=== PATIENT | male | born 1990 | race American Indian/Alaskan Native ===

== ENCOUNTER 2016-10-30 06:57 | Day surgery (SDC) | payer OTHER, BC ==
[2016-10-23 10:25] VITALS: BMI 38.7
[2016-10-30] MEDS ORDERED: Rocuronium 10 mg/ml (10 ml) ONE (07:50)
[2016-10-30] MEDS ORDERED: Propofol 10 mg/ml Inj (20 ML) ONE (07:50)
[2016-10-30] MEDS ORDERED: Midazolam 2 MG/2 ML VIAL ONE ×2 (07:52→10:27)
[2016-10-30] MEDS ORDERED: Lactated Ringer's 1,000 ML IV ONE ×3 (08:20→14:30)
[2016-10-30] MEDS ORDERED: ceFAZolin IV 2 gm in Dextrose 1 GM/50 ML BAG IVPB ONE (08:32)
[2016-10-30] MEDS ORDERED: Bacitracin Ointment 30 GM TUBE ONE (10:27)
[2016-10-30] MEDS ORDERED: Neostigmine Methylsulfate 3mg/3ml Syringe IV ONE (10:34)
[2016-10-30] MEDS ORDERED: HYDROmorphone 0.5 mg/0.5 ml ISec IVP PRN (11:40)
[2016-10-30 12:54] VITALS: O2SAT 100
[2016-10-30] MEDS ORDERED: Bupivacaine 0.25% Inj(30mL) ONE (13:17)
[2016-10-30] MEDS ORDERED: Bupivacaine HCl 0.25% PF (10 ml) Inj ONE (13:28)
--- NOTE | 2016-10-30 13:59 | PCM.ANESB1 ---
Interscalene Block - Brachial Plexus Procedure Performed: Interscalene Block of Brachial Plexus Right - Procedure Interscalene Block of Brachial Plexus: This procedure was explained to the patient that it is for post-operative pain management. Consent was obtained after a thorough discussion with the patient regarding the benefits and possible complications of local anesthetic block of the Brachial Plexus at the Interscalene area. The patient was brought to the Operating Room and standard monitors were applied. Time out was held with the circulating nurse to confirm the correct surgery and appropriate block. After applying Oxygen by nasal cannula and administering IV Sedation, the patient's head was gently rotated away from the RIGHT operative shoulder and the anterior scalene groove was carefully palpated. The ultrasound transducer was then applied to the skin in the transverse plane and the brachial plexus was visualized lateral to the carotid artery. After identification,the supraclavicular portion of the neck was prepped with Betadine solution three times and Lidocaine 1% was injected subcutaneously for topical analgesia. At this point, a # 22 gauge Stimuplex 2 inches insulated needle was inserted into the supraclavicular groove and directed in a caudal and midline direction. The needle was inserted lateral to the ultrasound transducer in-plane towards the brachial plexus in a [id number] direction. Needle advancement was performed carefully under direct ultrasound visualization. After repeated negative aspiration,___5__cc of_0.25%_, bupivicaine were injected and this was followed with _15__cc of _0.25____% bupivicaine. Under ultrasound guidance the local anesthetics were observed surrounding the roots of the brachial plexus. The needle was removed intact and sterile dressing was applied. The patient had stable vital signs, was conscious and in no apparent distress. The patient tolerated the supraclavicular block of the bracheal plexus well with stable vital signs, no paresthesias, no complaints.
[2016-10-30 15:12] VITALS: BP 117/80; PULSE 63; RESP 18; TEMP 98.1
--- NOTE | 2016-11-02 14:24 | RAD ---
PROCEDURE: Intraoperative Fluoroscopy. HISTORY: RT. WRIST SCAPHOIDLUNATE TEAR FINDINGS: Fluoroscopic assistance was provided for scapholunate ligament repair with pin fixation. Please refer to the operative report from Dr. COLON
--- NOTE | 2016-11-16 01:42 | OP ---
PROCEDURE DATE: 10/30/2016 PREOPERATIVE DIAGNOSIS: Right scapholunate ligament tear. POSTOPERATIVE DIAGNOSIS: Scapholunate ligament partial tear. SURGEON: Jenifer Triana MD CO-SURGEON: Estefany Stovall MD PROCEDURE: Ligament reconstruction of scapholunate dorsal ligament and harvesting of ECRB strip tendon. ANESTHESIA: General endotracheal anesthesia. COUNTS: Lap, sponge, and needle counts were correct at the end of the case. CONDITION: The patient was stable upon discharge to recovery room. INDICATIONS FOR SURGERY: The patient is a 26-year-old man who sustained a scapholunate ligament tear when he fell on his outstretched hand. He continued to be poorly compliant with his splinting and there was evidence of widening of the scapholunate ligament interval on x-ray. Decision was made to repair the scapholunate ligament tendon. DESCRIPTION OF PROCEDURE: Surgery is as follows: The patient was identified in the holding area and brought to the operating room, laid supine on the operating room table. Together with Dr. Stovall, who will dictate his portion of the procedure, the patient's arm was placed in a tourniquet, prepped and draped in the usual sterile fashion after general anesthesia was induced. Beginning with dorsal incision, incision was taken down through skin and dermis and interval between the third and fourth dorsal compartments was opened in order to expose the carpel ligaments. Once the dorsal carpal ligaments were identified using intraoperative fluoroscopy, it was noted that part of the scapholunate ligament was intact. Therefore, the decision was made to repair the scapholunate to superimpose the scapholunate ligament tear, but no additional transscaphoid ligament reconstruction was necessary. The ECRB tendon was identified at the base of the index finger and this was traced distally for approximately 3 cm under direct visualization. Using a tendon stripper, the remainder of the tendon was harvested and divided until a length of approximately 5 cm was obtained. This was done evolving together with fiber wire on one end in order to prep the interference screw for the scaphoid. Using intraoperative fluoroscopy, the position of two scaphoid anchors was verified. The lunate anchor was placed first and then tension set across the scaphoid with intraoperative fluoroscopy. Two K-wires were placed from the scaphoid into the capitate and scaphoid into the lunate prior to setting the tension with the second anchor into the scaphoid. This locked the scapholunate interval in place and will be removed at a later day. Intraoperative fluoroscopy was checked to verify the position of our anchors. The excess ligament was trimmed. At this point, tourniquet was deflated and pressure held for 5 minutes. Any bleeding was controlled with electrocautery. Intraoperative motion showed stability of the scapholunate interval. The capsule was then closed using 3-0 Ethibond followed by 4-0 Vicryl to the deep dermis and 4-0 Monocryl running subcuticular. The patient was then placed in dressings consisting of bacitracin, Adaptic, 4 x 4 gauze, Webril, and then a splint was applied within Daniel wrap. The patient tolerated the procedure well, was extubated on the table, transferred to a stretcher, and brought to recovery room in stable condition. Jenifer Triana MD Estefany Stovall MD <
== END 2016-10-30 15:15 | disposition home or self-care (01) ==
LOC: C.SDS 06:57
PROVIDERS: ATTEND Student in an Organized Health Care Education/Training Program
DX: S63.8X1A Sprain of other part of right wrist and hand, initial encounter (principal); W18.39XA Other fall on same level, initial encounter
CPT/HCPCS: 20924; 25332; C1713; C1769; J0690; J1170; J2001; J2250; J2704; J2710; J3010; J7120